=== PATIENT | female | born 1965 | race Caucasian/White ===

== ENCOUNTER → 2024-07-12 | Outpatient (CLI) | payer MEDICARE, MEDICAID ==
[~2024-07-12] MED LIST: ALBU18HF IH; ATOR10TA PO; GABA100C7 PO; LEVO-16 PO; LEVO750T25 PO; METF500T17 PO; METR500T PO; MORP15TA PO; PROM25SU32 RC; [UNRECOGNIZED DRUG - CODE] PO
== END | disposition home or self-care (01) ==
LOC: RAD 10:28
PROVIDERS: ATTEND Anesthesiology
DX: M47.896 Other spondylosis, lumbar region (principal)